=== PATIENT | male | born 1985 | race Caucasian/White ===

== ENCOUNTER 2024-01-24 19:00 | Emergency (ER) | payer SELFPAY ==
[~2024-01-24] VITALS: Ht 190.5 cm; Wt 75.0 kg
[2024-01-24 19:21] VITALS: BP 127/87; PULSE 80; RESP 18; TEMP 98.1; O2SAT 98
== END 2024-01-24 21:06 | disposition home or self-care (01) ==
LOC: ER 19:00
DX: S42.009A Fracture of unspecified part of unspecified clavicle, initial encounter for closed fracture (principal); X58.XXXA Exposure to other specified factors, initial encounter; Y93.89 Activity, other specified; Y92.89 Other specified places as the place of occurrence of the external cause; Y99.8 Other external cause status
CPT/HCPCS: 99281; A4565